=== PATIENT | male | born 1970 | race Caucasian/White ===

== ENCOUNTER 2016-07-20 14:19 | Emergency (ER) | payer BC, OTHER ==
[2016-07-20 14:30] VITALS: BP 128/68; PULSE 71; TEMP 98.2; BMI 39.0
[2016-07-20] MEDS ORDERED: ONDANSETRON 4 MG/2 ML VIAL IVPUSH ONE (14:33)
[2016-07-20] MEDS ORDERED: SODIUM CHLORIDE 1,000 ML IV STA (14:33)
--- NOTE | 2016-07-20 14:37 | PDOC ---
History of Present Illness - General Chief Complaint: Pain Stated Complaint: ABD PAIN Time Seen by Provider: 07/20/16 14:32 History Source: Patient Exam Limitations: No Limitations - History of Present Illness Initial Comments: 07/20/16 14:37 CHIEF COMPLAINT: Abdominal pain HISTORY OF PRESENT ILLNESS: This is a 46 year old male with a history of aplastic anemia and paroxysmal nocturnal hemoglobinuria who presents complaining of two weeks of intermittent, crampy, diffuse abdominal pain. The pain is worse with eating. It is associated with nausea, anorexia, non-bloody, non-bilious vomiting, chills, and bloody, mucoid stool. Surgical history: Fissurotomy 2011 Recent Travel: None Vital signs on arrival are unremarkable. PCP: Dr. Kenney Richards GI: Dr. Rollins REVIEW OF SYSTEMS: GENERAL/CONSTITUTIONAL: Chills, no fever. Malaise, anorexia. No weakness. No weight change. HEAD, EYES, EARS, NOSE AND THROAT: No change in vision. No ear pain or discharge. No sore throat. CARDIOVASCULAR: No chest pain or palpitations. RESPIRATORY: No cough, wheezing, or shortness of breath. GASTROINTESTINAL: See HPI. GENITOURINARY: No dysuria, frequency, or change in urination. MUSCULOSKELETAL: No joint or muscle swelling or pain. No neck or back pain. SKIN: No rash or easy bruising. NEUROLOGIC: No headache, vertigo, loss of consciousness, or loss of sensation. PSYCHIATRIC: No depression or anxiety. ENDOCRINE: No increased thirst. No abnormal weight change. 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 ALLERGIC/IMMUNOLOGIC: No hives or skin allergy. No latex allergy. PHYSICAL EXAM: GENERAL: The patient is awake, alert, and fully oriented, in no acute distress. HEAD: Normal with no signs of trauma. ENT: Pupils equal, round and reactive to light, extraocular movements intact, sclera anicteric, conjunctiva clear. Neck supple. LUNGS: Clear to auscultation bilaterally. Normal excursion. No respiratory distress or use of accessory muscles. CV: RRR, S1/S2, no MRG. Cap refill < 2 sec. ABDOMEN: Soft, non-distended, diffusely tender to deep palpation in zeke- umbilical region. EXTREMITIES: Normal range of motion, no edema. NEUROLOGICAL: Normal speech, normal gait. CN II-XII grossly intact. PSYCH: Normal mood, normal affect. SKIN: Warm, dry, normal turgor, no rashes or lesions noted. RECTAL: Deferred. Past History - Past Medical History Allergies/Adverse Reactions: Allergies Allergy/AdvReac Type Severity Reaction Status Date / Time No Known Allergies Allergy Verified 07/20/16 14:30 Home Medications: Ambulatory Orders Ciprofloxacin [Cipro -] 500 mg PO Q12H #10 tablet 07/20/16 Metronidazole [Flagyl -] 500 mg PO Q6H #28 tablet 07/20/16 Oxycodone HCl/Acetaminophen [Percocet 5-325 mg Tablet] 1 - 2 tab PO Q6H PRN #30 tab MDD 6 tabs 07/20/16 Anemia: Yes (aplastic) - Psycho/Social/Smoking Cessation Hx Anxiety: No Suicidal Ideation: No Smoking History: Never smoked Have you smoked in the past 12 months: No Information on smoking cessation initiated: No Hx Alcohol Use: No Drug/Substance Use Hx: No Substance Use Type: None *Physical Exam - Vital Signs Last Vital Signs Temp Pulse Resp BP Pulse Ox 98.2 F 71 18 128/68 100 07/20/16 14:25 07/20/16 14:25 07/20/16 14:25 07/20/16 14:25 07/20/16 14:25 ED Treatment Course - LABORATORY CBC & Chemistry Diagram: 07/20/16 14:30 07/20/16 14:30 - RADIOLOGY Radiology Studies Ordered: Category Date Time Status ABDOMEN & PELVIS CT WITH CONTR [CT] Stat CT Scan 07/20/16 14:33 Ordered Medical Decision Making - Medical Decision Making 07/20/16 15:12 A/P: 46 year old male with diffuse abdominal pain, n/v, and bloody/mucoid stools. 1. Labs including CBC, comp, Mg, lactic acid 2. CTAP with PO/IV contrast to evaluate for colitis/enteritis 3. Patient has previously sent stool sample to outside lab 4. IVF 5. Zofran 4mg IVP 07/20/16 15:25 WBC 3.4 Plt 102 Lactic acid within normal limits at 0.76. BUN mildly elevated at 19. 07/20/16 16:29 CTAP results reviewed and unremarkable. Patient is feeling well and tolerating PO. Will dc with Cipro/Flagyl for presumed infectious diarrhea. Patient to follow up with PCP and GI. *DC/Admit/Observation/Transfer Diagnosis at time of Disposition: Abdominal pain Qualifiers: Abdominal location: generalized Qualified Code(s): R10.84 - Generalized abdominal pain - Discharge Dispostion Disposition: HOME Condition at time of disposition: Stable Admit: No - Prescriptions Prescriptions: Ciprofloxacin [Cipro -] 500 mg PO Q12H #10 tablet Metronidazole [Flagyl -] 500 mg PO Q6H #28 tablet Oxycodone HCl/Acetaminophen [Percocet 5-325 mg Tablet] 1 - 2 tab PO Q6H PRN #30 tab MDD 6 tabs PRN Reason: Pain - Referrals Referrals: Jacky Richards MD [Primary Care Provider] - 1 week Dane Rollins MD [Staff Physician] - Call tomorrow - Patient Instructions Printed Discharge Instructions: DI for Diarrhea and Traveler's Diarrhea -- Adult Additional Instructions: -Rest and stay well-hydrated -Take antibiotics as prescribed if not improving -Please follow up with your PCP and GI -Return for worsening pain, inability to keep down fluids, fever, or any other concerning symptoms
[2016-07-20] MEDS ORDERED: ONDANSETRON 4 MG/2 ML VIAL ONE (14:38)
[2016-07-20 14:42] LABS: BASOPHIL 0.8 % (0-2.0); EOSINOPHIL 0.4 % (0-4.5); MCH 33.4 pg (25.7-33.7); MCHC 34.7 g/dl (32.0-35.9); MEAN CELL VOLUME 96.4 fl (80-96); NEUTROPHILS 58.5 % (42.8-82.8); PLATELET COUNT 106 K/MM3 (134-434); RDW 15.2 % (11.9-15.9); WHITE BLOOD COUNT 3.4 K/mm3 (4.0-10.0)
[2016-07-20 15:04] LABS: ALBUMIN 4.4 g/dl (3.4-5.0); ANION GAP 10 (8-16); BILIRUBIN,TOTAL 0.8 mg/dL (0.2-1.0); CALCIUM 9.3 mg/dL (8.5-10.1); CO2 27 mmol/L (21-32); CREATININE 1.1 mg/dL (0.7-1.3); GLUCOSE,RANDOM 93 mg/dL (74-106); MAGNESIUM 2.3 mg/dL (1.8-2.4); SGOT/AST 17 U/L (15-37); SGPT/ALT 18 U/L (12-78); TOT PROT 7.7 g/dl (6.4-8.2)
[2016-07-20 15:05] LABS: ALK PHOS 71 U/L (45-117)
== END 2016-07-20 16:37 | disposition home or self-care (01) ==
LOC: JERFT 14:19
PROC: 3E033GC Introduction of Other Therapeutic Substance into Peripheral Vein, Percutaneous Approach (ICD-10-PCS; principal; 2016-07-20)
PROC: 3E0337Z Introduction of Electrolytic and Water Balance Substance into Peripheral Vein, Percutaneous Approach (ICD-10-PCS; 2016-07-20)
DX: R10.84 Generalized abdominal pain (principal); D64.9 Anemia, unspecified
CPT/HCPCS: 36415; 74177-TC; 80053; 83605; 83690; 83735; 85025; 99281-25

== ENCOUNTER 2021-03-09 07:46 | Emergency (ER) | payer OTHER ==
[2021-03-09] MEDS ORDERED: SODIUM CHLORIDE 1,000 ML IV STA (07:52)
[2021-03-09 08:03] VITALS: BP 134/70; PULSE 78; TEMP 98.6; BMI 28.4
[2021-03-09 08:25] LABS: BASO % 0.4 % (0-2.0); EOS % 0.6 % (0-4.5); HEMATOCRIT 35.8 % (35.4-49); LYMPH % 30.9 % (8-40); MCHC 36.4 g/dl (32.0-35.9); MEAN PLT VOLUME 8.3 fl (7.5-11.1); MONO % 14.9 % (3.8-10.2); NEUT % 53.2 % (42.8-82.8); PLATELET COUNT 96 10^3/uL (134-434); RBC 3.73 M/mm3 (4.00-5.60); RDW 15.2 % (11.9-15.9); WHITE BLOOD COUNT 2.2 K/mm3 (4.0-10.0)
[2021-03-09 08:40] LABS: ALBUMIN 3.7 g/dl (3.4-5.0); BLOOD UREA NITROGEN 16.2 mg/dL (7-18); MAGNESIUM 1.9 mg/dL (1.8-2.4)
[2021-03-09 08:43] LABS: CREATININE 1.1 mg/dL (0.55-1.3)
[2021-03-09 08:45] LABS: BILIRUBIN,TOTAL 0.8 mg/dL (0.2-1); TOT PROT 7.4 g/dl (6.4-8.2)
== END 2021-03-09 11:53 | disposition home or self-care (01) ==
LOC: JER 07:46
PROC: 3E0337Z Introduction of Electrolytic and Water Balance Substance into Peripheral Vein, Percutaneous Approach (ICD-10-PCS; principal; 2021-03-09)
DX: R10.32 Left lower quadrant pain (principal)
CPT/HCPCS: 36415; 72191-TC; 74175-TC; 80053; 82550; 83010; 83605; 83615; 83690; 83735; 85025; 99285-25; Q9967

== ENCOUNTER 2021-10-16 10:57 | Emergency (ER) | payer OTHER ==
[2021-10-16 11:13] VITALS: BP 130/70; PULSE 70; TEMP 98.7; BMI 25.8
[2021-10-16 11:26] LABS: BASO % 0.2 % (0-2.0); EOS % 0.6 % (0-4.5); HEMATOCRIT 42.2 % (35.4-49); HEMOGLOBIN 14.7 GM/dL (11.7-16.9); LYMPH % 32.8 % (8-40); MCH 34.1 pg (25.7-33.7); MCHC 34.7 g/dl (32.0-35.9); MEAN CELL VOLUME 98.3 fl (80-96); MEAN PLT VOLUME 8.4 fl (7.5-11.1); NEUT % 54.4 % (42.8-82.8); PLATELET COUNT 101 10^3/uL (134-434); RBC 4.29 M/mm3 (4.00-5.60); RDW 16.2 % (11.9-15.9); WHITE BLOOD COUNT 2.9 K/mm3 (4.0-10.0)
[2021-10-16 11:42] LABS: CALCIUM 9.2 mg/dL (8.5-10.1)
[2021-10-16 11:43] LABS: ALBUMIN 4.4 g/dl (3.4-5.0); BLOOD UREA NITROGEN 18.4 mg/dL (7-18)
[2021-10-16 11:46] LABS: CREATININE 1.2 mg/dL (0.55-1.3)
[2021-10-16 11:47] LABS: BILIRUBIN,TOTAL 0.8 mg/dL (0.2-1)
[2021-10-16 11:48] LABS: TOT PROT 7.8 g/dl (6.4-8.2)
== END 2021-10-16 12:00 | disposition home or self-care (01) ==
LOC: JER 10:57
DX: R10.9 Unspecified abdominal pain (principal)
CPT/HCPCS: 36415; 74176-TC; 80053; 83615; 85025; 99285-25

== ENCOUNTER 2022-05-01 15:14 | Emergency (ER) | payer OTHER ==
[2022-05-01 16:01] LABS: URINE APPEARANCE CLEAR; URINE BILIRUBIN NEGATIVE (NEGATIVE); URINE COLOR YELLOW; URINE GLUCOSE (UA) NEGATIVE (NEGATIVE); URINE KETONE NEGATIVE (NEGATIVE); URINE LEUK ESTERASE NEGATIVE (NEGATIVE); URINE NITRITE NEGATIVE (NEGATIVE); URINE PROTEIN NEGATIVE (NEGATIVE); URINE UROBILINOGEN 0.2 mg/dL (0.2-1.0)
[2022-05-01 16:56] VITALS: BP 128/72; PULSE 78; RESP 18; TEMP 98; BMI 26.6
== END 2022-05-01 19:41 | disposition home or self-care (01) ==
LOC: JER 15:14
DX: N45.1 Epididymitis (principal)
CPT/HCPCS: 36415; 76870-TC; 81003; 87086; 87491; 87591; 99283-25

== ENCOUNTER 2023-10-04 10:06 | Emergency (ER) | payer OTHER ==
[2023-10-04 10:48] VITALS: BP 119/72; PULSE 71; RESP 18; TEMP 98.5; BMI 26.6
[2023-10-04 10:51] LABS: RETICULOCYTES 1.64 % (0.5-1.5)
[2023-10-04 10:56] LABS: BASO % 0.1 % (0-2.0); EOS % 0.8 % (0-4.5); HEMATOCRIT 42.7 % (35.4-49); HEMOGLOBIN 15.1 GM/dL (11.7-16.9); LYMPH % 28.3 % (8-40); MCH 33.9 pg (25.7-33.7); MCHC 35.4 g/dl (32.0-35.9); MEAN CELL VOLUME 95.8 fl (80-96); MEAN PLT VOLUME 8.4 fl (7.5-11.1); MONO % 7.5 % (3.8-10.2); NEUT % 63.3 % (42.8-82.8); PLATELET COUNT 125 10^3/uL (134-434); RBC 4.46 M/mm3 (4.00-5.60); RDW 16.1 % (11.9-15.9); WHITE BLOOD COUNT 4.4 K/mm3 (4.0-10.0)
[2023-10-04 11:17] LABS: POTASSIUM 4.1 mmol/L (3.5-5.1)
[2023-10-04 11:20] LABS: CALCIUM 9.4 mg/dL (8.5-10.1)
[2023-10-04 11:21] LABS: ALBUMIN 4.4 g/dl (3.4-5.0)
[2023-10-04 11:24] LABS: CREATININE 1.2 mg/dL (0.55-1.3)
[2023-10-04 11:25] LABS: BILIRUBIN,TOTAL 0.8 mg/dL (0.2-1)
[2023-10-04] MEDS: SODIUM CHLORIDE 0.9% 1000 ML INFUS.BAG IV ONE (11:30)
[2023-10-04] MEDS ORDERED: KETOROLAC TROMETHAMINE 15 MG/ML VIAL ONE (12:30)
[2023-10-04] MEDS: KETOROLAC TROMETHAMINE 15 MG/ML VIAL IVPUSH ONE ×2 (12:33→12:34)
[2023-10-04 12:51] LABS: PH,URINE 5.5 (5.0-8.0); URINE APPEARANCE CLEAR; URINE BILIRUBIN NEGATIVE (NEGATIVE); URINE COLOR YELLOW; URINE GLUCOSE (UA) NEGATIVE (NEGATIVE); URINE KETONE NEGATIVE (NEGATIVE); URINE LEUK ESTERASE NEGATIVE (NEGATIVE); URINE NITRITE NEGATIVE (NEGATIVE); URINE PROTEIN NEGATIVE (NEGATIVE); URINE UROBILINOGEN 0.2 mg/dL (0.2-1.0)
== END 2023-10-04 15:40 | disposition home or self-care (01) ==
LOC: JER 10:06
PROC: 3E0303Z Introduction of Anti-inflammatory into Peripheral Vein, Open Approach (ICD-10-PCS; principal; 2023-10-04)
DX: R10.9 Unspecified abdominal pain (principal)
CPT/HCPCS: 36415; 74177-TC; 80053; 81003; 83010; 83615; 85025; 85045; 87086; 99285-25; Q9967